=== PATIENT | male | born 1985 | race Caucasian/White ===

== ENCOUNTER 2018-04-16 12:53 | Emergency (ER) | payer SELFPAY ==
[~2018-04-16 12:53] MED LIST: ACE3 PO; AMOX-362 PO; AMOX500T10 PO; AMPH10TA21 PO; AUG500 PO; AUG875 PO; CEP500 PO; CLI150 PO; CYC10 PO; CYCL10TA29 PO; DICL-195 PO; IBU600 PO; IBU800 PO; IBUP-1618 PO; IBUP200C71 PO; IBUP400T13 PO; IBUP800T37 PO; IBUPROFEN; KET10 PO; LOR5 PO; LOR5/325 PO; MEDROL DOSE PACK; NAP250 PO; NO CURRENT MEDS; NO ROUTINE MEDS; NOR5/325 PO; PENI-22 PO; PENI-24 PO; PER PO; TRA50 PO; TRAM-420 PO; TRAM-627 PO
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
[2018-04-16] MEDS ORDERED: KET10 PO (14:00)
[2018-04-16 14:15] VITALS: BP 132/97
== END 2018-04-16 14:25 | disposition home or self-care (01) ==
LOC: ER 13:13
DX: S83.92XA Sprain of unspecified site of left knee, initial encounter (principal)
CPT/HCPCS: 73552; 73564; 99283; L1830

== ENCOUNTER 2018-06-19 23:50 | Emergency (ER) | payer SELFPAY ==
[2018-06-19] MEDS ORDERED: NS(*) 0.9% 1000 ML BAG 1,000 ML IV ONE (23:53)
[2018-06-20 00:23] LABS: PLATELET COUNT, AUTOMATED 297 K/uL (150-450)
--- NOTE | 2018-06-20 01:12 | RADIOLOGY IMAGING REPORT ---
FACILITY: [facility] PATIENT NAME: Ariel Eldridge : 1985 MR: [id number] V: [id number] EXAM DATE: ORDERING PHYSICIAN: BALJIT HARMAN TECHNOLOGIST: [place] [facility] [place] Ariel Eldridge : 1985 Visit/Account:[id number] Date of Sevice: 06/19/[address]: Indication: Altered mental status and possible injury. Technique: Contiguous axial sections were obtained from the base to the vertex without contrast enhan cement. One of the following dose optimization techniques was utilized in the performance of this exam: Autom ated exposure control; adjustment of the mA and/or kV according to the patient's size; or use of an i terative reconstruction technique. Specific details can be referenced in the facility's radiology CT exam operational policy. Comparison: None. Findings: There is no evidence of intra-axial or extra-axial hemorrhage. No focal areas of decreased or increased attenuation are identified. There is no evidence of mass, edema, or shift of the midline structures. The size, shape, and configuration of the ventricular system are normal. The skeletal st ructures are intact and unremarkable. There is no evidence of fracture or other acute deformity. The visualized paranasal sinuses and mastoid air cells are clear. Impression: Unremarkable unenhanced head CT. Report Dictated By: Lencho Riddle MD at 06/20/2018 1:04 AM Report E-Signed By: eLncho Riddle MD at 06/20/2018 1:08 AM WSN:[id number]
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
[2018-06-20 03:00] VITALS: BP 119/78
== END 2018-06-20 03:15 ==
LOC: MERGE 23:57 → ER 23:57
DX: R40.1 Stupor (principal); F10.920 Alcohol use, unspecified with intoxication, uncomplicated; S09.90XA Unspecified injury of head, initial encounter; F12.10 Cannabis abuse, uncomplicated; E87.0 Hyperosmolality and hypernatremia
CPT/HCPCS: 70450; 80305; 80320; 81001; 82140; 82375; 82550; 84443; 84484; 85025; 96360; 99284; J7030; 82040; 82247; 82310; 82374; 82435; 82565; 82947; 84075; 84132; 84155; 84295; 84450; 84460; 84520

== ENCOUNTER → 2018-06-19 | Outpatient (CLI) | payer SELFPAY ==
[~2018-06-19] MED LIST changes: +IBUP-136 PO; -IBUP200C71 PO
== END ==
LOC: AMB 23:28
PROVIDERS: ATTEND Nurse Practitioner
DX: F10.129 Alcohol abuse with intoxication, unspecified (principal)
CPT/HCPCS: A0425; A0429

== ENCOUNTER 2018-12-30 08:55 | Emergency (ER) | payer SELFPAY ==
--- NOTE | 2018-12-30 08:56 | ER Report ---
History and Physical Time Seen By MD: 08:56 HPI/ROS CHIEF COMPLAINT: Right-sided facial swelling and dental pain HISTORY OF PRESENT ILLNESS: Patient is a 33-year-old male here with complaints of right-sided facial swelling 4 days, several month history of dental fracture with tooth decay. Patient is attempting to go to a dentist but was having issues getting an appointment. Patient then establish an appointment but had to miss it due to other obligations. Patient is currently attempting to reestablish care. Patient does have significant right-sided facial swelling with gingival edema. Patient has been taking ibuprofen in large quantities without relief of symptoms. Patient is afebrile at time of evaluation complaining of moderate to severe pain. Denies difficulty swallowing, difficulty breathing. REVIEW OF SYSTEMS: Constitutional: No fever, no chills. Eyes: No discharge. ENT: No sore throat. + right sided upper molar fractures and surrounding edema Musculoskeletal: No back pain. Skin: No rashes. Neurological: No headache. Allergies: Coded Allergies: No Known Drug Allergies (Unverified , 04/27/17) UNABLE TO OBTAIN (Unverified , 06/21/18) Home Meds Active Scripts Penicillin V Potassium 500 Mg Tab (PENICILLIN V POTASSIUM 500 MG TAB) 500 Mg Tablet, 500 MG PO QID for 7 Days, #28 TAB Prov:ANNAMARIE JOSHUA DO 12/30/18 Tramadol Hcl (TRAMADOL HCL) 50 Mg Tablet, 50 MG PO Q6H PRN for PAIN, #20 TAB 0 Refills Prov:ANNAMARIE JOSHUA DO 12/30/18 Hx Smoking: Yes Smoking Status: Current: Every Day Smoker Exposure to Second Hand Smoke?: Yes Hx Substance Use Disorder: No Hx Alcohol Use: No Constitutional Physical Exam General Appearance: The patient is alert, has no immediate need for airway protection and no signs of toxicity. Mild distress secondary to pain Eyes: Pupils equal and round no pallor or injection. ENT, Mouth: Mucous membranes are moist. + Right lower frontal dental pain with tooth decay and right-sided facial swelling Respiratory: There are no retractions, lungs are clear to auscultation. Neurological: No focal neurological deficits Skin: Warm and dry, no rashes. DIFFERENTIAL DIAGNOSIS: After history and physical exam differential diagnosis was considered for dental abscess, dental fracture, dental decay Medical Decision Making ED Course/Re-evaluation ED Course Patient is a 33-year-old male here with complaints of facial swelling, dental fracture with likely dental abscess. Patient was started on penicillin, given tramadol prescription and advised to follow-up with dentistry for further treatment. Patient was stable at time of discharge. Return precautions provided. Decision to Disposition Date: Dec 30, 2018 Decision to Disposition Time: 09:33 Depart Departure Latest Vital Signs Impression: Primary Impression: Dental abscess Condition: Improved Disposition: HOME OR SELF-CARE New Scripts Penicillin V Potassium 500 Mg Tab (PENICILLIN V POTASSIUM 500 MG TAB) 500 Mg T ablet 500 MG PO QID for 7 Days, #28 TAB Prov: ANNAMARIE JOSHUA DO 12/30/18 Tramadol Hcl (TRAMADOL HCL) 50 Mg Tablet 50 MG PO Q6H PRN for PAIN, #20 TAB 0 Refills Prov: ANNAMARIE JOSHUA DO 12/30/18 Patient Instructions: Dental Abscess (GEN) Additional Instructions: Please establish dental care with dentistry. Please take penicillin 500 mg or 1 tab 4 times a day for 7 days. Please return immediately if you develop worsening symptoms, blurry vision, double vision, difficulty swallowing, difficulty breathing. You may take ibuprofen up to 100 mg every 8 hours or naproxen 500 mg every 12 hours and you may alternate with acetaminophen or Tylenol not to exceed 3 g in 1 day. You may take tramadol 1 tablet every 8 hours as needed for breakthrough pain control. ANNAMARIE JOSHUA DO Dec 30, 2018 08:56
[2018-12-30 09:30] VITALS: BP 127/86
[2018-12-30] MEDS ORDERED: TRAM-420 PO (09:35)
[2018-12-30] MEDS ORDERED: PENI-24 PO (09:35)
== END 2018-12-30 09:49 | disposition home or self-care (01) ==
LOC: ER 08:57
DX: K04.7 Periapical abscess without sinus (principal)
CPT/HCPCS: 99281; D9110